=== PATIENT | female | born 1975 ===

== ENCOUNTER 2022-10-30 11:03 | Inpatient (IN) | payer MEDICAID ==
[2022-10-30] VITALS (18 sets, daily range): BP systolic 74–137; BP diastolic 42–82
[~2022-10-30] VITALS: Ht 167.6 cm; Wt 129.0 kg
[~2022-10-30 11:03] MED LIST: DOPamine/D5W 400mg/250ml bag IV ONE; calcium chloride 100 MG/1 ML inj IV ONE; epiNEPHrine 0.1mg/ml 10ml syringe ONE; naloxone 2mg/2ml inj ONE
[2022-10-30] MEDS ORDERED: albuterol 2.5 MG/3 ML nebule CONTNEB PRN (11:25)
[2022-10-30] MEDS ORDERED: iohexol 350MG/ML 100ml bottle IV ONE (11:26)
[2022-10-30] MEDS ORDERED: normal saline 1000ml 1,000 ML IV ONE ×2 (11:30→13:05)
[2022-10-30] MEDS ORDERED: methylPREDNISolone sod succ 125mg/2ml vial IV ONE (11:30)
[2022-10-30] MEDS ORDERED: ipratropium 0.5 MG/2.5ML nebule ONE (11:30)
[2022-10-30] MEDS ORDERED: epiNEPHrine inj 5 MG in normal saline 250ml IV soln 245 ML IV SCH (11:30)
--- NOTE | 2022-10-30 11:40 | NUR ---
Pt. incontinent of lg amt foul smelling urine prior to temp f/c placed.
[2022-10-30] MEDS ORDERED: CefTRIAXone/D5W-Rocephin 1gm 50 ML IV ONE (11:45)
[2022-10-30 11:54] LABS: BASOPHILS # (AUTO) 0.2 X10'3 (0-0.2); EOSINOPHILS # (AUTO) 0.5 X10'3 (0-0.9); LYMPHOCYTES # (AUTO) 5.9 X10'3 (1.1-4.8); LYMPHOCYTES % (AUTO) 38.6 % (21-51); MEAN PLATELET VOLUME 7.7 FL (7.4-10.4); MONOCYTES # (AUTO) 1.2 X10'3 (0-0.9); MONOCYTES % (AUTO) 7.6 % (2-12); NEUTROPHILS # (AUTO) 7.6 X10'3 (1.8-7.7); NEUTROPHILS % (AUTO) 49.8 % (42-75)
[2022-10-30 12:10] LABS: HEMOGLOBIN 10.2 g/dl (12.0-16.0); MEAN CORPUSCULAR HEMOGLOBIN 21.6 PG (27.0-31.0); MEAN CORPUSCULAR VOLUME 71.8 FL (78-98); RED BLOOD COUNT 4.73 X10'6 (4.20-5.60); WHITE BLOOD COUNT 15.5 X10'3 (4.5-11.0)
[2022-10-30 12:11] LABS: MEAN CORPUSCULAR HGB CONC 30.1 g/dL (33.0-36.5); PLATELET COUNT 426 X10'3 (140-440); RED CELL DISTRIBUTION WIDTH 18.2 % (11.5-14.5)
[2022-10-30 12:25] LABS: NUCLEATED RED BLOOD CELLS 3 /100WBC (0-0); TOTAL CELLS COUNTED 100
[2022-10-30 12:26] LABS: ANISOCYTOSIS 2+; MICROCYTOSIS 1+; PLATELET ESTIMATE NORMAL
[2022-10-30 12:30] LABS: ALANINE AMINOTRANSFERASE 60 U/L (12-78); ALBUMIN 3.3 G/DL (3.4-5.0); ALBUMIN/GLOBULIN RATIO 0.7 (1.1-1.5); ALKALINE PHOSPHATASE 104 IU/L (46-116); ANION GAP 22 (8-16); ASPARTATE AMINO TRANSFERASE 68 U/L (10-37); BILIRUBIN,TOTAL 0.3 MG/DL (0.1-1.0); BLOOD UREA NITROGEN 8 MG/DL (7-18); BUN/CREATININE RATIO 9.6 (10.0-20.0); CALCIUM 9.7 MG/DL (8.5-10.1); CHLORIDE 102 MMOL/L (99-107); CREATININE 0.83 MG/DL (0.40-0.90); GLUCOSE 287 MG/DL (70-104); POTASSIUM 4.8 MMOL/L (3.5-5.1); SODIUM 142 MMOL/L (135-145); TOTAL CARBON DIOXIDE 17.6 MMOL/L (24-32); TOTAL PROTEIN 8.2 G/DL (6.4-8.2); eGFR 73 ML/MIN
[2022-10-30 12:33] LABS: MAGNESIUM 2.3 MG/DL (1.5-2.4)
[2022-10-30 12:34] LABS: ABG BASE EXCESS -23.2 mmol/L (-2.0-2.0); ABG HCO3 7.4 mmol/L (22.0-26.0); ABG OXYGEN SATURATION 73.2 % (94-97); ABG PCO2 (T) 39.1 mmHg (32.0-45.0); ABG PO2 (T) 64.4 mmHg (75.0-100.0); ALLEN'S TEST POSITIVE; FCOHb 0.3 % (0.0-3.9); FMetHb 1.1 % (0.0-1.5); FO2Hb 72.2 % (94-97); PEEP 10 cm H2O; RESPIRATORY RATE 18 b/min; TIDAL VOLUME 450 mL; TOTAL HEMOGLOBIN 5.3 G/dl (12.0-16.0)
[2022-10-30] MEDS: DOPamine 400mg/D5W 250ml 250 ML IV SCH ×2 (13:00→22:04)
--- NOTE | 2022-10-30 13:00 | NUR ---
Report given to Brooke MCBRIDEtie bucker at bedside in the ED prior to transferrring pt. to ICU. Pt. transferred to ICU with 2 RN's and RT on monitor while being bagged by RT, critical.
[2022-10-30] MEDS ORDERED: SODIUM BICARB 150mEq/D5W 1L 1,000 ML IV ONE (13:15)
[2022-10-30] MEDS ORDERED: LidoCAINE 2% Topical Jelly 11mL syringe TOP ONE (13:15)
[2022-10-30] MEDS ORDERED: magnesium hydroxide 30ml (MOM) UD suspension PO PRN (13:15)
[2022-10-30] MEDS ORDERED: potassium Cl 20 mEq SR tablet PO PRN ×2 (13:15)
[2022-10-30] MEDS ORDERED: magnesium 4gm in 100ml NS 100 ML IV PRN ×2 (13:15→13:50)
[2022-10-30] MEDS ORDERED: ondansetron/PF 4mg/2ml inj IV PRN (13:15)
[2022-10-30] MEDS ORDERED: magnesium 2GM in 50ml NS 50 ML IV PRN ×2 (13:15→13:50)
[2022-10-30] MEDS ORDERED: mag hydrox/Alum hydrox/simeth 30ml oral suspension PO PRN (13:15)
[2022-10-30] MEDS ORDERED: magnesium Cl slow-release 64mg tablet PO PRN ×2 (13:15→13:50)
[2022-10-30] MEDS ORDERED: potassium Cl 40MEQ/1/2NS 520ml 520 ML IV PRN (13:15)
--- NOTE | 2022-10-30 13:30 | NUR ---
Patient to room 2041 from ED.
[2022-10-30] MEDS ORDERED: epiNEPHrine 1 mg/ml 30ml MDV ONE ×2 (13:37→15:45)
[2022-10-30] MEDS ORDERED: K, MAG and/or Phos replacement - Verify level? MC SCH (14:00)
[2022-10-30] MEDS ORDERED: fentaNYL/PF 50MCG/1 ML 2ML syringe IV PRN (14:00)
[2022-10-30 14:01] LABS: MONOCYTES # (AUTO) 1.8 X10'3 (0-0.9)
[2022-10-30 14:02] LABS: BASOPHILS # (AUTO) 0.1 X10'3 (0-0.2); BASOPHILS % (AUTO) 0.3 % (0-1); EOSINOPHILS # (AUTO) 0.4 X10'3 (0-0.9); HEMOGLOBIN 9.3 g/dl (12.0-16.0); LYMPHOCYTES # (AUTO) 7.9 X10'3 (1.1-4.8); LYMPHOCYTES % (AUTO) 22.5 % (21-51); MEAN CORPUSCULAR HEMOGLOBIN 21.9 PG (27.0-31.0); MEAN CORPUSCULAR VOLUME 75.6 FL (78-98); NEUTROPHILS # (AUTO) 25.1 X10'3 (1.8-7.7); NEUTROPHILS % (AUTO) 71.2 % (42-75); PLATELET COUNT 320 X10'3 (140-440); RED BLOOD COUNT 4.23 X10'6 (4.20-5.60); RED CELL DISTRIBUTION WIDTH 18.8 % (11.5-14.5)
[2022-10-30 14:08] LABS: WHITE BLOOD COUNT 35.3 X10'3 (4.5-11.0)
[2022-10-30] MEDS ORDERED: vasopressin inj. 40 UNIT in normal saline 50ml IV soln 38 ML IV SCH (14:15)
[2022-10-30] MEDS ORDERED: dextrose 50%-water 50ml dispensing syringe IV PRN (14:20)
[2022-10-30 14:25] LABS: LARGE PLATELETS FEW; NUCLEATED RED BLOOD CELLS 3 /100WBC (0-0); PLATELET ESTIMATE NORMAL; TOTAL CELLS COUNTED 100
[2022-10-30 14:26] LABS: MICROCYTOSIS 1+
[2022-10-30] MEDS: SODIUM BICARB 150mEq/D5W 1L 1,000 ML IV SCH ×2 (14:35→19:59)
[2022-10-30] MEDS ORDERED: midazolam 100mg in NS 100ml 100 ML IV PRN (14:45)
[2022-10-30] MEDS: FENTANYL-0.9 % NACL/PF 100 ML IV PRN (14:50)
[2022-10-30] MEDS: Insulin Reg/NS 100units/100mL 100 ML IV SCH (15:26)
--- NOTE | 2022-10-30 15:30 | NUR ---
Dr. Cavazos bedside to speak with patient's daughter, son and mom.
[2022-10-30] MEDS ORDERED: VANCOmycin 2,000MG in NS 500ml IV soln IV ONE (15:35)
[2022-10-30 15:49] LABS: COLOR,URINE YELLOW (Yellow); GLUCOSE, URINE 500 mg/dl (Neg); KETONES,URINE NEGATIVE (Neg); LEUKOCYTE ESTERASE ,URINE NEGATIVE (Neg); NITRITES, URINE NEGATIVE (Neg); OCCULT BLOOD,URINE LARGE (Neg); PROTEIN,URINE 100 mg/dl (Neg); UROBILINOGEN,URINE 0.2 E.U/dL (0.2-1.0)
[2022-10-30 15:51] LABS: CLARITY,URINE SLIGHTLY CLOUDY (Clear); UA COLLECTION TYPE FOLEY CATH
[2022-10-30 15:52] LABS: APTT 38 SECONDS (22-32)
[2022-10-30 15:57] LABS: BACTERIA,URINE 3+ /HPF (Neg); COARSE GRANULAR CAST 0-3 /LPF (NEGATIVE); SQUAMOUS EPITHELIAL CELL,UR FEW /LPF (FEW)
[2022-10-30 15:58] LABS: PHOSPHORUS 8.5 MG/DL (2.3-4.5)
[2022-10-30] MEDS: mineral oil/petrolatum ophthal oint EACHEYE SCH ×3 (16:00→23:57)
[2022-10-30] MEDS ORDERED: pantoprazole 40MG/NS 100ML BAG 100 ML IV SCH (16:00)
[2022-10-30] MEDS ORDERED: mineral oil/petrolatum ophthal oint EACHEYE SCH (16:00)
[2022-10-30] MEDS ORDERED: pantoprazole 40mg IV 80 MG in normal saline 100ml IV soln 100 ML IV SCH (16:00)
[2022-10-30] MEDS ORDERED: heparin, porcine 5000 units/ml vial SQ SCH (16:00)
[2022-10-30] MEDS: CISatracurium besylate inj. 100 MG in normal saline 100ml IV soln 90 ML IV PRN (16:23)
[2022-10-30] MEDS: piperacillin/tazo 3.375gm/50ml 50 ML IV SCH ×2 (16:55→23:55)
[2022-10-30 17:01] LABS: URINE HCG NEGATIVE (NEG)
[2022-10-30 17:12] LABS: ALANINE AMINOTRANSFERASE 268 U/L (12-78); ALBUMIN 2.9 G/DL (3.4-5.0); ALBUMIN/GLOBULIN RATIO 0.7 (1.1-1.5); ALKALINE PHOSPHATASE 186 IU/L (46-116); ANION GAP 24 (8-16); ASPARTATE AMINO TRANSFERASE 586 U/L (10-37); BILIRUBIN,TOTAL 0.6 MG/DL (0.1-1.0); BLOOD UREA NITROGEN 11 MG/DL (7-18); BUN/CREATININE RATIO 5.1 (10.0-20.0); CALCIUM 8.3 MG/DL (8.5-10.1); CHLORIDE 102 MMOL/L (99-107); CREATININE 2.14 MG/DL (0.40-0.90); POTASSIUM 3.2 MMOL/L (3.5-5.1); SODIUM 142 MMOL/L (135-145); TOTAL PROTEIN 7.2 G/DL (6.4-8.2); eGFR 24 ML/MIN
[2022-10-30 17:21] LABS: GLUCOSE 417 MG/DL (70-104)
[2022-10-30 17:22] LABS: URINE AMPHETAMINE SCREEN POSITIVE (Neg); URINE BARBITUATE SCREEN NEGATIVE (Neg); URINE BENZODIAZEPINES SCREEN NEGATIVE (Neg); URINE CANNABINOID SCREEN NEGATIVE (Neg); URINE COCAINE SCREEN NEGATIVE (Neg); URINE METHADONE SCREEN NEGATIVE (Neg); URINE OPIATE SCREEN NEGATIVE (Neg); URINE PHENCYCLIDINE SCREEN NEGATIVE (Neg)
--- NOTE | 2022-10-30 17:45 | NUR ---
Dr. Cavazos bedside and placed Arterial line
--- NOTE | 2022-10-30 18:15 | NUR ---
Problems reprioritized. Patient report given, questions answered & plan of care reviewed with RAE Giordano.
--- NOTE | 2022-10-30 18:30 | NUR ---
Patient in room ICU 2041. I have received report from RAE Cox and had the opportunity to ask questions and assume patient care.
[2022-10-30] MEDS: epiNEPHrine inj 10 MG in normal saline 250ml IV soln 240 ML IV SCH (18:59)
[2022-10-30] MEDS: docusate sod 100mg capsule PO SCH (18:59)
[2022-10-30 19:54] LABS: ABG BASE EXCESS -11.1 mmol/L (-2.0-2.0); ABG HCO3 18.4 mmol/L (22.0-26.0); ABG OXYGEN SATURATION 97.3 % (94-97); ABG PCO2 (T) 49.1 mmHg (32.0-45.0); ABG PO2 (T) 89.1 mmHg (75.0-100.0); FCOHb 0.3 % (0.0-3.9); FMetHb 0.3 % (0.0-1.5); FO2Hb 96.7 % (94-97); PATIENT TEMPERATURE 32.9; PEEP 10 cm H2O; RESPIRATORY RATE 20 b/min; TIDAL VOLUME 400 mL; TOTAL HEMOGLOBIN 10.9 G/dl (12.0-16.0)
[2022-10-30] MEDS: K and/or MAG REPLACEMENT MC SCH (20:00)
[2022-10-30 20:53] LABS: ALBUMIN 2.5 G/DL (3.4-5.0); ANION GAP 20 (8-16); BLOOD UREA NITROGEN 14 MG/DL (7-18); BUN/CREATININE RATIO 5.5 (10.0-20.0); CALCIUM 7.7 MG/DL (8.5-10.1); CHLORIDE 102 MMOL/L (99-107); CREATININE 2.54 MG/DL (0.40-0.90); MAGNESIUM 2.2 MG/DL (1.5-2.4); SODIUM 142 MMOL/L (135-145); TOTAL CARBON DIOXIDE 20.1 MMOL/L (24-32); eGFR 20 ML/MIN
[2022-10-30 21:01] LABS: POTASSIUM 2.4 MMOL/L (3.5-5.1)
[2022-10-30 21:02] LABS: GLUCOSE 505 MG/DL (70-104)
--- NOTE | 2022-10-30 21:05 | NUR ---
updated on critical K 2.4. ordered to have insulin gtt turned off and replace K per protocol.
[2022-10-30] MEDS: potassium Cl 40MEQ/270ML bag 270 ML IV PRN ×2 (21:55→23:55)
[2022-10-30 22:40] LABS: HEMATOCRIT 32.2 % (35.0-45.0); HEMOGLOBIN 9.5 g/dl (12.0-16.0); MEAN CORPUSCULAR HGB CONC 29.4 g/dL (33.0-36.5); MEAN PLATELET VOLUME 6.7 FL (7.4-10.4); PLATELET COUNT 279 X10'3 (140-440); RED CELL DISTRIBUTION WIDTH 19.5 % (11.5-14.5)
[2022-10-30 22:45] LABS: WHITE BLOOD COUNT 32.5 X10'3 (4.5-11.0)
[2022-10-30 22:54] LABS: APTT 33 SECONDS (22-32)
[2022-10-30 23:44] LABS: D-DIMER > 35.20 MG/L FEU (0-0.50)
[2022-10-30] MEDS: pantoprazole 40MG/NS 100ML BAG 100 ML IV SCH (23:56)
[2022-10-31] VITALS (36 sets, daily range): BP systolic 80–125; BP diastolic 50–67
[2022-10-31 02:02] LABS: BASOPHILS # (AUTO) 0.1 X10'3 (0-0.2); BASOPHILS % (AUTO) 0.2 % (0-1); EOSINOPHILS % (AUTO) 0 % (0-6); HEMATOCRIT 32.1 % (35.0-45.0); HEMOGLOBIN 9.4 g/dl (12.0-16.0); LYMPHOCYTES # (AUTO) 0.6 X10'3 (1.1-4.8); LYMPHOCYTES % (AUTO) 2.3 % (21-51); MEAN CORPUSCULAR HEMOGLOBIN 22.2 PG (27.0-31.0); MEAN CORPUSCULAR HGB CONC 29.3 g/dL (33.0-36.5); MEAN CORPUSCULAR VOLUME 75.7 FL (78-98); MEAN PLATELET VOLUME 6.6 FL (7.4-10.4); MONOCYTES # (AUTO) 0.7 X10'3 (0-0.9); MONOCYTES % (AUTO) 2.6 % (2-12); NEUTROPHILS # (AUTO) 26.8 X10'3 (1.8-7.7); NEUTROPHILS % (AUTO) 94.9 % (42-75); PLATELET COUNT 243 X10'3 (140-440); RED BLOOD COUNT 4.24 X10'6 (4.20-5.60); RED CELL DISTRIBUTION WIDTH 19.2 % (11.5-14.5)
[2022-10-31 02:20] LABS: ALBUMIN 2.4 G/DL (3.4-5.0); ALBUMIN/GLOBULIN RATIO 0.6 (1.1-1.5); ALKALINE PHOSPHATASE 119 IU/L (46-116); ANION GAP 20 (8-16); BILIRUBIN,TOTAL 0.7 MG/DL (0.1-1.0); BLOOD UREA NITROGEN 18 MG/DL (7-18); BUN/CREATININE RATIO 6.3 (10.0-20.0); CALCIUM 7.1 MG/DL (8.5-10.1); CHLORIDE 102 MMOL/L (99-107); CREATININE 2.85 MG/DL (0.40-0.90); PHOSPHORUS 4.7 MG/DL (2.3-4.5); SODIUM 141 MMOL/L (135-145); TOTAL PROTEIN 6.2 G/DL (6.4-8.2); eGFR 18 ML/MIN
[2022-10-31 02:25] LABS: ASPARTATE AMINO TRANSFERASE 1073 U/L (10-37)
[2022-10-31 02:31] LABS: GLUCOSE 696 MG/DL (70-104); POTASSIUM 2.9 MMOL/L (3.5-5.1)
--- NOTE | 2022-10-31 02:48 | NUR ---
Dr. Styles notified of BG 696 and K 2.9. Since K is increasing after replacement MD ordered to continue replacing K and restart insulin gtt.
[2022-10-31] MEDS: potassium Cl 40MEQ/270ML bag 270 ML IV PRN ×2 (02:54→05:02)
[2022-10-31 02:55] LABS: WHITE BLOOD COUNT 28.2 X10'3 (4.5-11.0)
[2022-10-31 03:07] LABS: ABG BASE EXCESS -10.9 mmol/L (-2.0-2.0); ABG HCO3 17.9 mmol/L (22.0-26.0); ABG OXYGEN SATURATION 96.4 % (94-97); ABG PCO2 (T) 44.7 mmHg (32.0-45.0); ABG PO2 (T) 79.7 mmHg (75.0-100.0); FCOHb 0.3 % (0.0-3.9); FMetHb 0.4 % (0.0-1.5); FO2Hb 95.7 % (94-97); PEEP 5 cm H2O; RESPIRATORY RATE 20 b/min; TIDAL VOLUME 400 mL; TOTAL HEMOGLOBIN 10.8 G/dl (12.0-16.0)
[2022-10-31 03:09] LABS: ALANINE AMINOTRANSFERASE 227 U/L (12-78)
[2022-10-31] MEDS ORDERED: sodium bicarbonate (8.4%) inj. 100 MEQ in sodium chloride 0.45% 1,000 ML IV SCH (03:20)
--- NOTE | 2022-10-31 03:26 | NUR ---
Dr. Styles called to clarify insulin gtt. gtt restarted at 7.4 and MD does not want to increase the rate at this time due to the patient's K being 2.9. He did however agree to change the bicarb gtt to 1/2 ns instead of the d5w.
[2022-10-31] MEDS: pantoprazole 40MG/NS 100ML BAG 100 ML IV SCH ×5 (03:49→23:19)
[2022-10-31] MEDS: mineral oil/petrolatum ophthal oint EACHEYE SCH ×6 (03:49→23:19)
[2022-10-31] MEDS ORDERED: VANCOmycin 1250MG/NS 250ml Bag 250 ML IV SCH (04:00)
[2022-10-31 04:38] LABS: APTT 30 SECONDS (22-32)
[2022-10-31 04:58] LABS: CKMB RELATIVE INDEX 3.3 RATIO (0-2.5)
[2022-10-31] MEDS: epiNEPHrine inj 10 MG in normal saline 250ml IV soln 240 ML IV SCH ×2 (05:19→19:09)
--- NOTE | 2022-10-31 05:34 | NUR ---
Dr. Calderon notified of BG of 731. the last k was 2.9 which is fpc replaced. ordered that the insulin be increased to 10. Once the last bag of K is infused he would like a stat BMP and another 40meq of K to be infused at that time.
--- NOTE | 2022-10-31 06:11 | NUR ---
Problems reprioritized. Patient report given, questions answered & plan of care reviewed with RAE Cox.
--- NOTE | 2022-10-31 06:24 | NUR ---
Patient in room ICU 2041. I have received report from RAE Giordano and had the opportunity to ask questions and assume patient care.
[2022-10-31] MEDS: Insulin Reg/NS 100units/100mL 100 ML IV SCH ×3 (07:07→16:20)
[2022-10-31] MEDS: piperacillin/tazo 3.375gm/50ml 50 ML IV SCH ×2 (07:13→15:40)
[2022-10-31] MEDS: docusate sod 100mg capsule PO SCH ×2 (07:13→19:09)
[2022-10-31] MEDS: K and/or MAG REPLACEMENT MC SCH ×2 (07:13→20:00)
[2022-10-31] MEDS: potassium Cl 20mEq/100mL bag 100 ML IV SCH ×2 (08:20→09:24)
[2022-10-31 08:26] LABS: BASOPHILS % (AUTO) 0.1 % (0-1); EOSINOPHILS % (AUTO) 0 % (0-6); HEMATOCRIT 31.2 % (35.0-45.0); HEMOGLOBIN 9.1 g/dl (12.0-16.0); LYMPHOCYTES # (AUTO) 0.6 X10'3 (1.1-4.8); LYMPHOCYTES % (AUTO) 2.4 % (21-51); MEAN CORPUSCULAR HEMOGLOBIN 21.9 PG (27.0-31.0); MEAN CORPUSCULAR HGB CONC 29.2 g/dL (33.0-36.5); MEAN PLATELET VOLUME 6.7 FL (7.4-10.4); MONOCYTES # (AUTO) 0.5 X10'3 (0-0.9); MONOCYTES % (AUTO) 1.8 % (2-12); NEUTROPHILS # (AUTO) 24.6 X10'3 (1.8-7.7); NEUTROPHILS % (AUTO) 95.7 % (42-75); PLATELET COUNT 206 X10'3 (140-440); RED BLOOD COUNT 4.16 X10'6 (4.20-5.60); RED CELL DISTRIBUTION WIDTH 19.3 % (11.5-14.5)
[2022-10-31] MEDS: DOPamine 400mg/D5W 250ml 250 ML IV SCH (08:33)
[2022-10-31 08:43] LABS: ALBUMIN 2.2 G/DL (3.4-5.0); ANION GAP 18 (8-16); BLOOD UREA NITROGEN 21 MG/DL (7-18); BUN/CREATININE RATIO 6.7 (10.0-20.0); CALCIUM 7.4 MG/DL (8.5-10.1); CHLORIDE 105 MMOL/L (99-107); CREATININE 3.12 MG/DL (0.40-0.90); MAGNESIUM 1.7 MG/DL (1.5-2.4); POTASSIUM 3.1 MMOL/L (3.5-5.1); SODIUM 141 MMOL/L (135-145); TOTAL CARBON DIOXIDE 18.1 MMOL/L (24-32); eGFR 16 ML/MIN
[2022-10-31 08:47] LABS: WHITE BLOOD COUNT 25.7 X10'3 (4.5-11.0)
[2022-10-31 08:49] LABS: GLUCOSE 627 MG/DL (70-104)
[2022-10-31 08:50] LABS: PLATELET ESTIMATE NORMAL; TOTAL CELLS COUNTED 100
[2022-10-31 08:51] LABS: ANISOCYTOSIS 2+; MICROCYTOSIS 1+
--- NOTE | 2022-10-31 09:30 | NUR ---
Called [facility], patient is eligible for organ donation. [facility] to be called when end of life conversation is had with family.
[2022-10-31 09:31] LABS: ABG BASE EXCESS -8.2 mmol/L (-2.0-2.0); ABG OXYGEN SATURATION 96.2 % (94-97); ABG PO2 (T) 88.3 mmHg (75.0-100.0); FCOHb 0.3 % (0.0-3.9); FMetHb 0.3 % (0.0-1.5); FO2Hb 95.6 % (94-97); PEEP 10 cm H2O; RESPIRATORY RATE 20 b/min; TIDAL VOLUME 500 mL; TOTAL HEMOGLOBIN 10.4 G/dl (12.0-16.0)
--- NOTE | 2022-10-31 10:42 | NUR ---
Rounds note: Change bicarb gtt back to 3 amp. Nuc. Med. brain scan when patient is rewarmed.
--- NOTE | 2022-10-31 10:44 | NUR ---
Patient's mother and cousin bedside. Dr. Cavazos in to talk with the family. Family questions answered and information on current status of the patient given to them. Family stated an understanding of the situation.
--- NOTE | 2022-10-31 11:26 | NUR ---
Initial: Pt admit s/p cardiac arrest with elevated troponins, encephalopathy, hypotension, and lactic acidosis following use of IV methamphetamines. Pt intubated and on hypothermic protocol with rewarming to begin at 1630 [address] RN. OGT in place with roughly 300 mL bloody output yesterday though none today per RN. No plans to initiate nutrition support at this time. TF recs below for if expected prolonged intubation and to receive nutrition support. Noted pt with elevated serum BG, pt on an insulin drip with down trending blood sugars. No documented BM since admit. Routine bowel care available though held at this time d/t NPO status. Noted pt with a low Hiram of 10. Per EMR pt with generalized 3+ edema though no wounds identified at this time. Will continue to follow closely and make recommendations as appropriate. Recommendations: 1) IF TF, continuous Vital HP via OGT with 65 mL/hr goal rate. Begin at 25 mL/hr and advance by 20 mL Q8H as tolerated to goal rate 2) IF TF, additional 100 mL water flush Q4H; monitor serum Na 3) IF TF, prealbumin q Saturday/; daily scaled weights 4) Routine bowel care 5) Consider routine Iron and Vitamin C supplementation given low MCV Addendum: 10/31/22 at [address] Amended: Links added.
[2022-10-31] MEDS: SODIUM BICARBONATE IV SCH ×2 (11:28→18:48)
[2022-10-31] MEDS: SODIUM CHLORIDE 0.45% IV SCH ×2 (11:28→18:48)
--- NOTE | 2022-10-31 12:22 | NUR ---
[facility] NOTE: Per medical records, this is a 47-year-old patient who was admitted to the emergency department with CPR in progress after suffering a cardiac arrest suspected to be due to respiratory distress. EMS apparently were informed by the patient that she had used IV methamphetamines earlier today. Pt intubated and currently remains critical on multiple vasopressors. Most recent labs WBC 25.7, H&H 9.1 and 31.2, glucose 505, troponin 2096, albumin 2.2. EEG findings are indicative of a severe global insult to the cortical neurons and would be fitting with severe anoxic encephalopathy. Wound care in for skin assessment secondary to LOW CJ SCORE. Nurse at bedside states the patient is too critical for wound assessment at this time. She reports skin was intact and a border foam was in place to the sacral area for skin prevention. Plan to check back later in the week.
--- NOTE | 2022-10-31 12:30 | NUR ---
Dr. Cavazos bedside with Script Artist RN to exchange the arterial line catheter due to the current catheter not reading well.
--- NOTE | 2022-10-31 13:27 | NUR ---
Past medical history is unknown by daughter and by mother of the patient.
[2022-10-31 14:42] LABS: BASOPHILS % (AUTO) 0 % (0-1); EOSINOPHILS % (AUTO) 0 % (0-6); HEMATOCRIT 29.1 % (35.0-45.0); HEMOGLOBIN 8.9 g/dl (12.0-16.0); LYMPHOCYTES # (AUTO) 0.8 X10'3 (1.1-4.8); LYMPHOCYTES % (AUTO) 3.2 % (21-51); MEAN CORPUSCULAR HGB CONC 30.5 g/dL (33.0-36.5); MEAN CORPUSCULAR VOLUME 72.2 FL (78-98); MEAN PLATELET VOLUME 6.6 FL (7.4-10.4); MONOCYTES # (AUTO) 0.5 X10'3 (0-0.9); MONOCYTES % (AUTO) 2.2 % (2-12); NEUTROPHILS # (AUTO) 22.5 X10'3 (1.8-7.7); NEUTROPHILS % (AUTO) 94.6 % (42-75); PLATELET COUNT 172 X10'3 (140-440); RED BLOOD COUNT 4.04 X10'6 (4.20-5.60); RED CELL DISTRIBUTION WIDTH 19.1 % (11.5-14.5); WHITE BLOOD COUNT 23.8 X10'3 (4.5-11.0)
[2022-10-31 14:48] LABS: ABG BASE EXCESS -3.4 mmol/L (-2.0-2.0); ABG HCO3 22.4 mmol/L (22.0-26.0); ABG OXYGEN SATURATION 96.8 % (94-97); ABG PCO2 (T) 36.3 mmHg (32.0-45.0); ABG PO2 (T) 68.3 mmHg (75.0-100.0); FCOHb 0.3 % (0.0-3.9); FMetHb 0.3 % (0.0-1.5); FO2Hb 96.2 % (94-97); PEEP 10 cm H2O; RESPIRATORY RATE 20 b/min; TIDAL VOLUME 500 mL
[2022-10-31 15:38] LABS: ALBUMIN 2.2 G/DL (3.4-5.0); ANION GAP 16 (8-16); BLOOD UREA NITROGEN 24 MG/DL (7-18); BUN/CREATININE RATIO 7.7 (10.0-20.0); CALCIUM 7.3 MG/DL (8.5-10.1); CHLORIDE 110 MMOL/L (99-107); CREATININE 3.12 MG/DL (0.40-0.90); GLUCOSE 329 MG/DL (70-104); MAGNESIUM 1.6 MG/DL (1.5-2.4); SODIUM 148 MMOL/L (135-145); eGFR 16 ML/MIN
[2022-10-31] MEDS: FENTANYL-0.9 % NACL/PF 100 ML IV PRN (15:41)
[2022-10-31] MEDS: CISatracurium besylate inj. 100 MG in normal saline 100ml IV soln 90 ML IV PRN (15:41)
[2022-10-31 15:45] LABS: POTASSIUM 2.9 MMOL/L (3.5-5.1)
[2022-10-31 15:46] LABS: PHOSPHORUS 1.1 MG/DL (2.3-4.5)
[2022-10-31] MEDS ORDERED: potassium Cl 40MEQ/270ML bag 270 ML IV ONE ×2 (15:55→17:55)
[2022-10-31 16:10] LABS: CKMB RELATIVE INDEX 3.5 RATIO (0-2.5); CREATINE KINASE 2557 U/L (26-192)
[2022-10-31] MEDS ORDERED: sodium phosphate inj. 30 MMOL in dextrose 5%-water 250 ML IV PRN (16:10)
[2022-10-31] MEDS ORDERED: sodium phosphate inj. 15 MMOL in dextrose 5%-water 250 ML IV PRN (16:10)
[2022-10-31] MEDS ORDERED: sodium phosphate inj. 30 MMOL in dextrose 5%-water 250 ML IV ONE (16:30)
--- NOTE | 2022-10-31 18:15 | NUR ---
Problems reprioritized. Patient report given, questions answered & plan of care reviewed with RAE Giordano.
--- NOTE | 2022-10-31 18:30 | NUR ---
Patient in room ICU 2041. I have received report from RAE Cox and had the opportunity to ask questions and assume patient care.
[2022-10-31 19:17] LABS: ABG BASE EXCESS 0.4 mmol/L (-2.0-2.0); ABG HCO3 24.7 mmol/L (22.0-26.0); ABG PCO2 (T) 32.9 mmHg (32.0-45.0); FMetHb 0.1 % (0.0-1.5); FO2Hb 95.9 % (94-97); PATIENT TEMPERATURE 33.5; PEEP 10 cm H2O; RESPIRATORY RATE 20 b/min; TIDAL VOLUME 500 mL; TOTAL HEMOGLOBIN 9.5 G/dl (12.0-16.0)
[2022-10-31 20:39] LABS: BASOPHILS % (AUTO) 0.1 % (0-1); EOSINOPHILS % (AUTO) 0.1 % (0-6); HEMATOCRIT 27.3 % (35.0-45.0); HEMOGLOBIN 8.4 g/dl (12.0-16.0); LYMPHOCYTES # (AUTO) 0.9 X10'3 (1.1-4.8); LYMPHOCYTES % (AUTO) 4.3 % (21-51); MEAN CORPUSCULAR HEMOGLOBIN 22.1 PG (27.0-31.0); MEAN CORPUSCULAR HGB CONC 30.8 g/dL (33.0-36.5); MEAN CORPUSCULAR VOLUME 71.8 FL (78-98); MEAN PLATELET VOLUME 6.1 FL (7.4-10.4); MONOCYTES # (AUTO) 0.9 X10'3 (0-0.9); MONOCYTES % (AUTO) 4.4 % (2-12); NEUTROPHILS # (AUTO) 19.4 X10'3 (1.8-7.7); NEUTROPHILS % (AUTO) 91.1 % (42-75); PLATELET COUNT 130 X10'3 (140-440); RED CELL DISTRIBUTION WIDTH 18.7 % (11.5-14.5); WHITE BLOOD COUNT 21.3 X10'3 (4.5-11.0)
[2022-10-31 21:00] LABS: ANISOCYTOSIS 2+; PLATELET ESTIMATE DECREASED
[2022-10-31 21:01] LABS: BURR CELLS FEW; HYPOCHROMASIA 1+; MICROCYTOSIS 1+; POLYCHROMASIA FEW; TEAR DROP CELLS FEW
[2022-10-31 21:04] LABS: ANION GAP 11 (8-16); BLOOD UREA NITROGEN 26 MG/DL (7-18); BUN/CREATININE RATIO 8.5 (10.0-20.0); CALCIUM 7.3 MG/DL (8.5-10.1); CHLORIDE 114 MMOL/L (99-107); CREATININE 3.05 MG/DL (0.40-0.90); GLUCOSE 62 MG/DL (70-104); MAGNESIUM 1.5 MG/DL (1.5-2.4); POTASSIUM 3.9 MMOL/L (3.5-5.1); SODIUM 151 MMOL/L (135-145); eGFR 16 ML/MIN
[2022-10-31 21:07] LABS: CKMB RELATIVE INDEX 3.4 RATIO (0-2.5); CREATINE KINASE 2408 U/L (26-192)
[2022-10-31] MEDS: ringers solution, lacted 1,000 ML IV SCH (23:19)
[2022-11-01] VITALS (22 sets, daily range): BP systolic 85–141; BP diastolic 53–83
[2022-11-01 02:27] LABS: BASOPHILS % (AUTO) 0 % (0-1); EOSINOPHILS % (AUTO) 0 % (0-6); HEMATOCRIT 29.2 % (35.0-45.0); HEMOGLOBIN 9.1 g/dl (12.0-16.0); LYMPHOCYTES # (AUTO) 0.8 X10'3 (1.1-4.8); MEAN CORPUSCULAR HEMOGLOBIN 22.3 PG (27.0-31.0); MEAN CORPUSCULAR HGB CONC 31.3 g/dL (33.0-36.5); MEAN CORPUSCULAR VOLUME 71.2 FL (78-98); MEAN PLATELET VOLUME 6.4 FL (7.4-10.4); MONOCYTES % (AUTO) 3.7 % (2-12); NEUTROPHILS # (AUTO) 25.4 X10'3 (1.8-7.7); NEUTROPHILS % (AUTO) 93.3 % (42-75); PLATELET COUNT 138 X10'3 (140-440); RED CELL DISTRIBUTION WIDTH 19.1 % (11.5-14.5)
[2022-11-01 02:29] LABS: WHITE BLOOD COUNT 27.2 X10'3 (4.5-11.0)
[2022-11-01 02:42] LABS: APTT 25 SECONDS (22-32)
[2022-11-01 02:44] LABS: ALANINE AMINOTRANSFERASE 253 U/L (12-78); ALBUMIN 2.2 G/DL (3.4-5.0); ALBUMIN/GLOBULIN RATIO 0.6 (1.1-1.5); ALKALINE PHOSPHATASE 77 IU/L (46-116); ANION GAP 10 (8-16); ASPARTATE AMINO TRANSFERASE 440 U/L (10-37); BILIRUBIN,TOTAL 0.6 MG/DL (0.1-1.0); BLOOD UREA NITROGEN 28 MG/DL (7-18); BUN/CREATININE RATIO 8.2 (10.0-20.0); CALCIUM 7.1 MG/DL (8.5-10.1); CHLORIDE 112 MMOL/L (99-107); CREATININE 3.41 MG/DL (0.40-0.90); GLUCOSE 147 MG/DL (70-104); POTASSIUM 5.9 MMOL/L (3.5-5.1); SODIUM 149 MMOL/L (135-145); TOTAL CARBON DIOXIDE 27.5 MMOL/L (24-32); TOTAL PROTEIN 5.9 G/DL (6.4-8.2); eGFR 14 ML/MIN
[2022-11-01 02:55] LABS: MAGNESIUM 1.4 MG/DL (1.5-2.4); PHOSPHORUS 2.8 MG/DL (2.3-4.5)
[2022-11-01 02:57] LABS: CKMB RELATIVE INDEX 4.1 RATIO (0-2.5); CREATINE KINASE 2422 U/L (26-192)
[2022-11-01] MEDS ORDERED: dextrose 50%-water 50ml dispensing syringe IV PRN (03:25)
[2022-11-01] MEDS ORDERED: insulin Lispro (HumaLOG) vial - multi-dose SQ SCH (03:25)
[2022-11-01] MEDS ORDERED: MESSAGE TO PHARMACY PO ONE (03:25)
--- NOTE | 2022-11-01 03:31 | NUR ---
Dr. Smith called and notified of critical values, WBC 27.1 and Trop 2994. No orders received for these values. MD notified of K of 5.9, MD ordered 15g of Kayexalate oral q6h x3 doses. Also, patients insulin gtt was discussed with the MD. Patient was previously on a rate of 19.7 and was to restart the gtt once the patient was over 140. Patient is now 144 but has had the gtt off for several hours. MD agreed that even with a 40% decrease in rate per the protocol that it would be a high dose for this patient at this time. Therefore MD ordered that the insulin gtt be dc'd and switch patient to hyperglycemic protocol. Patient will now be checked q6h and will be started on the protocol once she has two sugars above 160 or one over 200.
[2022-11-01 03:37] LABS: ABG BASE EXCESS 0.3 mmol/L (-2.0-2.0); ABG HCO3 24.7 mmol/L (22.0-26.0); ABG OXYGEN SATURATION 91.9 % (94-97); ABG PCO2 (T) 35.9 mmHg (32.0-45.0); ABG PO2 (T) 57.1 mmHg (75.0-100.0); FCOHb 0.3 % (0.0-3.9); FMetHb 0.2 % (0.0-1.5); FO2Hb 91.4 % (94-97); PATIENT TEMPERATURE 35.3; PEEP 10 cm H2O; RESPIRATORY RATE 20 b/min; TIDAL VOLUME 500 mL; TOTAL HEMOGLOBIN 10.2 G/dl (12.0-16.0)
[2022-11-01] MEDS: mineral oil/petrolatum ophthal oint EACHEYE SCH ×3 (03:52→11:02)
[2022-11-01] MEDS: sodium polystyrene sulfonate 15gm/60ml oral suspension PO SCH ×3 (03:58→14:27)
[2022-11-01] MEDS: pantoprazole 40MG/NS 100ML BAG 100 ML IV SCH ×2 (03:59→11:02)
[2022-11-01] MEDS ORDERED: VANCOMYCIN 750MG IV in NS 250 ML IV SCH (04:00)
[2022-11-01] MEDS: ringers solution, lacted 1,000 ML IV SCH ×2 (04:01→12:15)
[2022-11-01 04:28] LABS: HEMOGLOBIN A1C 7.2 % (4.5-6.2)
--- NOTE | 2022-11-01 06:18 | NUR ---
Problems reprioritized. Patient report given, questions answered & plan of care reviewed with RAE Terry.
[2022-11-01 07:00] LABS: ABG BASE EXCESS -0.9 mmol/L (-2.0-2.0); ABG HCO3 23.6 mmol/L (22.0-26.0); ABG OXYGEN SATURATION 90.9 % (94-97); ABG PCO2 (T) 36.9 mmHg (32.0-45.0); ABG PO2 (T) 58.8 mmHg (75.0-100.0); FCOHb 0.3 % (0.0-3.9); FMetHb 0.3 % (0.0-1.5); FO2Hb 90.4 % (94-97); PEEP 14 cm H2O; RESPIRATORY RATE 20 b/min; TIDAL VOLUME 475 mL; TOTAL HEMOGLOBIN 9.9 G/dl (12.0-16.0)
[2022-11-01] MEDS: docusate sod 100mg capsule PO SCH (08:00)
[2022-11-01] MEDS ORDERED: piperacillin/tazo 3.375gm/50ml 50 ML IV SCH (08:00)
[2022-11-01] MEDS: K and/or MAG REPLACEMENT MC SCH (08:00)
[2022-11-01] MEDS: epiNEPHrine inj 10 MG in normal saline 250ml IV soln 240 ML IV SCH (08:48)
[2022-11-01] MEDS ORDERED: NORepinephrine 8mg/ 250ml NS 250 ML IV SCH (10:35)
--- NOTE | 2022-11-01 12:12 | NUR ---
WOC note, patient does not require WOC consult at this time. She is most likely moving to comfort care measures having most likely suffered brain . She remains intubated in the ICU. WOC will not follow.
[2022-11-01] MEDS ORDERED: UNABLE TO OBTAIN (12:54)
[2022-11-01] MEDS ORDERED: morphine 10mg/ml inj. IV PRN (15:50)
--- NOTE | 2022-11-01 16:57 | NUR ---
RN IS TO DOCUMENT YES TO ALL APPLICABLE AREAS Pronouncement of : 1. Time Physician Notified:[id number] 2. Date of : 11/01/2022 3. Time of : 1627 4. DNR/Withdraw life support documented: Yes 5. Monitor strip has been placed on chart: Yes 6. Assessment process is of one-minute duration and includes following criteria: a) Patient is unresponsive to all stimuli: Yes b) Pupils fixed and non-reactive: Yes c) Auscultation of precordium reveals absence of heart tones: Yes d) Auscultation of lungs reveals absence of breath sounds: Yes e) Absence of blood pressure / all vital signs: Yes f) QRS complexes are not present on monitor / EKG strip: Yes g) Pacer spikes without capture: N/A 4. Comments:
[2022-11-01] MEDS ORDERED: insulin glargine (Lantus) pen - multi-dose SQ SCH (21:00)
[2022-11-02] MEDS ORDERED: vancomycin inj 500 MG in normal saline 100ml IV soln 100 ML IV SCH (04:00)
[2022-11-05] MEDS ORDERED: VANCOMYCIN LEVEL IV ONE (03:30)
== END 2022-11-01 16:27 | DRG 720 ==
LOC: ER 11:04 → EDBD 11:04 → ED HOLD 13:25 → ICU 2S 14:01
PROVIDERS: ADMIT Internal Medicine Critical Care Medicine; ATTEND Internal Medicine Critical Care Medicine
PROC: 5A1945Z Respiratory Ventilation, 24-96 Consecutive Hours (ICD-10-PCS; principal; 2022-10-30)
PROC: 5A12012 Performance of Cardiac Output, Single, Manual (ICD-10-PCS; 2022-10-30)
PROC: 0BH17EZ Insertion of Endotracheal Airway into Trachea, Via Natural or Artificial Opening (ICD-10-PCS; 2022-10-30)
PROC: 06HY33Z Insertion of Infusion Device into Lower Vein, Percutaneous Approach (ICD-10-PCS; 2022-10-30)
PROC: 4A00X4Z Measurement of Central Nervous Electrical Activity, External Approach (ICD-10-PCS; 2022-10-30)
DX: A41.9 Sepsis, unspecified organism (principal); I46.9 Cardiac arrest, cause unspecified; J96.01 Acute respiratory failure with hypoxia; N17.0 Acute kidney failure with tubular necrosis; G93.40 Encephalopathy, unspecified; R65.21 Severe sepsis with septic shock; K92.2 Gastrointestinal hemorrhage, unspecified; Z51.5 Encounter for palliative care; Z66 Do not resuscitate; D64.9 Anemia, unspecified; E87.0 Hyperosmolality and hypernatremia; E87.20 Acidosis, unspecified; E87.6 Hypokalemia; R74.01 Elevation of levels of liver transaminase levels; I21.4 Non-ST elevation (NSTEMI) myocardial infarction; G93.1 Anoxic brain damage, not elsewhere classified; E11.9 Type 2 diabetes mellitus without complications; F15.10 Other stimulant abuse, uncomplicated; R34 Anuria and oliguria; R77.8 Other specified abnormalities of plasma proteins
CPT/HCPCS: 36415; 36600; 71045; 80048; 80053; 80305; 81001; 81025; 82140; 82550; 82553; 82803; 82947; 82948; 83036; 83605; 83735; 83880; 84100; 84145; 84484; 85007; 85008; 85018; 85025; 85027; 85379; 85610; 85730; 86885; 86900; 86901; 87040; 87070; 87081; 87088; 92950; 93306; 94003; 94640; 94760; 95816; 99285; A6213; A6258; A6449; A7015; A9900; C1751; C9113; G0378; J0171; J0696; J1265; J1644; J1815; J2274; J2310; J2543; J2930; J3010; J3370; J3480; J3490; J7030; J7040; J7050; J7060; J7120; Q9967